=== PATIENT | male | born 1960 | race Caucasian/White ===

== ENCOUNTER 2023-05-20 07:15 | Emergency (ER) | payer BC ==
[2023-05-20] MEDS ORDERED: Calcium Chloride 1 GM/10 ML Abboject SYRINGE ONE (08:00)
[2023-05-20] MEDS ORDERED: EPINEPHrine 1 MG/10 ML Abboject SYRINGE ONE (08:00)
== END 2023-05-20 07:29 | disposition expired ==
LOC: CSHERS 07:15 → EDBD 07:15 → CSHERS 07:29
DX: I46.9 Cardiac arrest, cause unspecified (principal)
CPT/HCPCS: 31500; 51702; 94760; 96374; J0171